=== PATIENT | male | born 1935 | race Caucasian/White ===

== ENCOUNTER 2017-07-07 14:20 | Inpatient (IN) | payer MEDICARE ==
[~2017-07-07] VITALS: Ht 180.3 cm; Wt 111.9 kg
[2017-07-07 12:00] VITALS: O2SAT 95
[2017-07-07 14:26] VITALS: BP 140/71; PULSE 105; RESP 20; TEMP 98.5; O2SAT 88
[2017-07-07] MEDS ORDERED: LANTUS2P (14:45)
[2017-07-07] MEDS ORDERED: LOVA10TA PO (14:45)
[2017-07-07] MEDS ORDERED: LANTINJ SQ (14:45)
[2017-07-07] MEDS ORDERED: LISI2.5T3 PO (14:45)
[2017-07-07] MEDS ORDERED: FURO1TAB62 PO (14:45)
[2017-07-07] MEDS ORDERED: SODIUM CHLOR 0.9% 1000 ML INJ 1,000 ML IV ONE (14:45)
[2017-07-07] MEDS ORDERED: SODIUM CHLORIDE 0.9% FLUSH 10 ML FLUSH IVF PRN (14:45)
[2017-07-07] MEDS ORDERED: SPIRCAP INH (14:45)
[2017-07-07] MEDS ORDERED: METF1000 PO (14:45)
--- NOTE | 2017-07-07 15:02 | PD ---
HPI . He fell and couldn't get up Chief Complaint: Diabetic Time Seen by Provider: 14:42 Travel History International Travel<30 days: No Contact w/Intl Traveler<30days: No Traveled to known affect area: No History of Present Illness HPI Patient presents to us via [facility] after falling. He states that he fell out of his bed last night about 3 AM. He states that his orders are very tight and that he was unable to get up. He states he was on his hands and knees for quite some time trying to get into the bed. He suffered some friction lobato to the knees as result of this. He then sat on his buttocks in the corner until help came 12 hours later. His only complaint to me was mild bilateral knee discomfort from friction lobato. EMS reported a fingerstick blood sugar in the 300+ range. They treated him in route with IV fluids. His fingerstick blood sugar on arrival here was around 290. The patient has no other physical complaints. PFSH Past Medical History High Cholesterol: Yes COPD: Yes Diabetes: Yes Patient Takes Glucophage: Yes Diminished Hearing: No Hypertension: Yes Tetanus Vaccination: Unknown Past Surgical History Surgical History: No Previous Surgery Social History Alcohol Use: No Tobacco Use: Yes (1 PPW) Substance Use: No Allergies-Medications (Allergen,Severity, Reaction): Coded Allergies: No Known Allergies (Unverified , 07/07/17) Reported Meds & Prescriptions Reported Meds & Active Scripts Active Reported Lantus Solostar Pen Inj (Insulin Glargine) 300 Unit/3 Ml Pen 40 Units SQ BID Lantus Inj (Insulin Glargine) 100 Unit/Ml Inj Spiriva Handihaler (Tiotropium Inh) 18 Mcg Cap 18 Mcg INH DAILY 1 capsule = 18 mcg Lovastatin 10 Mg Tab Unknown Dose PO DAILY Metformin (Metformin HCl) 1,000 Mg Tab 1,000 Mg PO BIDPC Lasix (Furosemide) 20 Mg Tab Unknown Dose PO DAILY Lisinopril 2.5 Mg Tab Unknown Dose PO DAILY Review of Systems Except as stated in HPI: all other systems reviewed are Neg Physical Exam Narrative GENERAL: Awake and alert and in no acute distress. SKIN: warm/dry. Good color and turgor. Superficial friction lobato on both knees. HEAD: Normocephalic. Atraumatic. EYES: Pupils equal and round. No scleral icterus. No injection or drainage. ENT: No nasal bleeding or discharge. Mucous membranes dry. Ketones. NECK: Trachea midline. Full range of motion without pain.. CARDIOVASCULAR: Regular rate and rhythm. Heart sounds normal. RESPIRATORY: No accessory muscle use. Clear to auscultation. Breath sounds equal bilaterally. GASTROINTESTINAL: Abdomen soft. Nontender. Bowel sounds present. Nondistended. MUSCULOSKELETAL: No obvious deformities. NEUROLOGICAL: Awake and alert. No obvious cranial nerve deficits. Motor grossly within normal limits. Normal speech. PSYCHIATRIC: Appropriate mood and affect; insight and judgment normal. Data Data Last Documented VS Vital Signs Date Time Temp Pulse Resp B/P (MAP) Pulse Ox O2 Delivery O2 Flow Rate FiO2 07/07/17 15:32 18 94 Nasal Cannula 2.00 07/07/17 15:28 93 07/07/17 14:26 98.5 Orders Orders Basic Metabolic Panel (Bmp) (07/07/17 14:42) Ckmb (Isoenzyme) Profile (07/07/17 14:42) Complete Blood Count With Diff (07/07/17 14:42) Magnesium (Mg) (07/07/17 14:42) Troponin I (07/07/17 14:42) Ecg Monitoring (07/07/17 14:42) Iv Access Insert/Monitor (07/07/17 14:42) Oximetry (07/07/17 14:42) Sodium Chloride 0.9% Flush (Ns Flush) (07/07/17 14:45) Sodium Chlor 0.9% 1000 Ml Inj (Ns 1000 M (07/07/17 14:45) Lisinopril (Prinivil) (07/07/17 15:15) Metformin (Glucophage) (07/07/17 15:15) CKMB (07/07/17 14:50) CKMB% (07/07/17 14:50) Labs Laboratory Tests Test 07/07/17 14:50 White Blood Count 19.6 TH/MM3 Red Blood Count 3.95 MIL/MM3 Hemoglobin 12.9 GM/DL Hematocrit 38.7 % Mean Corpuscular Volume 98.0 FL Mean Corpuscular Hemoglobin 32.6 PG Mean Corpuscular Hemoglobin Concent 33.2 % Red Cell Distribution Width 12.3 % Platelet Count 221 TH/MM3 Mean Platelet Volume 9.3 FL Neutrophils (%) (Auto) 88.7 % Lymphocytes (%) (Auto) 3.7 % Monocytes (%) (Auto) 7.5 % Eosinophils (%) (Auto) 0.0 % Basophils (%) (Auto) 0.1 % Neutrophils # (Auto) 17.4 TH/MM3 Lymphocytes # (Auto) 0.7 TH/MM3 Monocytes # (Auto) 1.5 TH/MM3 Eosinophils # (Auto) 0.0 TH/MM3 Basophils # (Auto) 0.0 TH/MM3 CBC Comment DIFF FINAL Differential Comment Blood Urea Nitrogen 22 MG/DL Creatinine 1.60 MG/DL Random Glucose 299 MG/DL Calcium Level 8.6 MG/DL Magnesium Level 1.5 MG/DL Sodium Level 139 MEQ/L Potassium Level 4.0 MEQ/L Chloride Level 105 MEQ/L Carbon Dioxide Level 21.9 MEQ/L Anion Gap 12 MEQ/L Estimat Glomerular Filtration Rate 42 ML/MIN Total Creatine Kinase 673 U/L Creatine Kinase MB 17.5 NG/ML Creatine Kinase MB % 2.6 % Troponin I 0.04 NG/ML MDM Medical Decision Making Medical Screen Exam Complete: Yes Emergency Medical Condition: Yes Differential Diagnosis Differential diagnosis of weakness includes but is not limited to infection, CVA , electrolyte disturbance, renal failure, hypoglycemia, UTI, ACS, acute blood loss Narrative Course This patient presents for evaluation after falling and being unable to get up. They are basically to concerns regarding this patient. #1 would be to rule out rhabdomyolysis. 2nd would be to evaluate his hyperglycemia. The hyperglycemia is pretty mild. He will be given a second liter of fluid here and then his sugar will be rechecked. I do not anticipate having to treat the sugar with insulin. I will order his routine meds. CBC & BMP Diagram 07/07/17 14:50 Calcium Level 8.6, Magnesium Level 1.5 CK 673 Trop 0.04 The patient will be ambulated to make sure that he is steady on his feet. Diagnosis Primary Impression: Rhabdomyolysis Qualified Codes: M62.82 - Rhabdomyolysis Patient Instructions: General Instructions, Rhabdomyolysis (DC) Additional Instructions: Drink lots of fluids for the next 24 hours. Disposition: 01 DISCHARGE HOME Condition: Stable Megan Verma MD Jul 07, 2017 15:02
[2017-07-07] MEDS ORDERED: LISINOPRIL 5 MG TAB PO ONE (15:15)
[2017-07-07] MEDS ORDERED: metFORMIN HCL 500 MG TAB PO ONE (15:15)
[2017-07-07 15:17] LABS: AUTOMATED NEUTROPHIL # 17.4 TH/MM3 (1.8-7.7); BASOPHIL % 0.1 % (0.0-2.0); HEMATOCRIT 38.7 % (39.0-51.0); HEMOGLOBIN 12.9 GM/DL (13.0-17.0); LYMPH % 3.7 % (9.0-44.0); LYMPHOCYTE # 0.7 TH/MM3 (1.0-4.8); MEAN CORPUSCULAR HEMOGLOBIN 32.6 PG (27.0-34.0); MEAN CORPUSCULAR HGB CONC 33.2 % (32.0-36.0); MEAN PLATELET VOLUME 9.3 FL (7.0-11.0); MONO % 7.5 % (0.0-8.0); MONOCYTE # 1.5 TH/MM3 (0-0.9); NEUT % 88.7 % (16.0-70.0); PLATELET COUNT 221 TH/MM3 (150-450); RED BLOOD COUNT 3.95 MIL/MM3 (4.50-5.90); RED CELL DISTRIBUTION WIDTH 12.3 % (11.6-17.2); WHITE BLOOD COUNT 19.6 TH/MM3 (4.0-11.0)
[2017-07-07 15:28] VITALS: BP 123/63; PULSE 93; RESP 16; O2SAT 94
[2017-07-07 15:32] VITALS: RESP 18; O2SAT 94
[2017-07-07 15:32] LABS: CALCIUM 8.6 MG/DL (8.5-10.1)
[2017-07-07 15:33] LABS: BICARBONATE 21.9 MEQ/L (21.0-32.0); MAGNESIUM 1.5 MG/DL (1.5-2.5)
[2017-07-07 15:36] LABS: CREATININE 1.6 MG/DL (0.60-1.30)
[2017-07-07 15:41] LABS: TROPONIN I 0.04 NG/ML (0.02-0.05)
--- NOTE | 2017-07-07 16:47 | PD ---
Data Data Last Documented VS Vital Signs Date Time Temp Pulse Resp B/P (MAP) Pulse Ox O2 Delivery O2 Flow Rate FiO2 07/07/17 15:32 18 94 Nasal Cannula 2.00 07/07/17 15:28 93 07/07/17 14:26 98.5 Orders Orders Basic Metabolic Panel (Bmp) (07/07/17 14:42) Ckmb (Isoenzyme) Profile (07/07/17 14:42) Complete Blood Count With Diff (07/07/17 14:42) Magnesium (Mg) (07/07/17 14:42) Troponin I (07/07/17 14:42) Ecg Monitoring (07/07/17 14:42) Iv Access Insert/Monitor (07/07/17 14:42) Oximetry (07/07/17 14:42) Sodium Chloride 0.9% Flush (Ns Flush) (07/07/17 14:45) Sodium Chlor 0.9% 1000 Ml Inj (Ns 1000 M (07/07/17 14:45) Lisinopril (Prinivil) (07/07/17 15:15) Metformin (Glucophage) (07/07/17 15:15) CKMB (07/07/17 14:50) CKMB% (07/07/17 14:50) Electrocardiogram (07/07/17 ) Chest, Single Ap (07/07/17 ) Labs Laboratory Tests Test 07/07/17 14:50 White Blood Count 19.6 TH/MM3 Red Blood Count 3.95 MIL/MM3 Hemoglobin 12.9 GM/DL Hematocrit 38.7 % Mean Corpuscular Volume 98.0 FL Mean Corpuscular Hemoglobin 32.6 PG Mean Corpuscular Hemoglobin Concent 33.2 % Red Cell Distribution Width 12.3 % Platelet Count 221 TH/MM3 Mean Platelet Volume 9.3 FL Neutrophils (%) (Auto) 88.7 % Lymphocytes (%) (Auto) 3.7 % Monocytes (%) (Auto) 7.5 % Eosinophils (%) (Auto) 0.0 % Basophils (%) (Auto) 0.1 % Neutrophils # (Auto) 17.4 TH/MM3 Lymphocytes # (Auto) 0.7 TH/MM3 Monocytes # (Auto) 1.5 TH/MM3 Eosinophils # (Auto) 0.0 TH/MM3 Basophils # (Auto) 0.0 TH/MM3 CBC Comment DIFF FINAL Differential Comment Blood Urea Nitrogen 22 MG/DL Creatinine 1.60 MG/DL Random Glucose 299 MG/DL Calcium Level 8.6 MG/DL Magnesium Level 1.5 MG/DL Sodium Level 139 MEQ/L Potassium Level 4.0 MEQ/L Chloride Level 105 MEQ/L Carbon Dioxide Level 21.9 MEQ/L Anion Gap 12 MEQ/L Estimat Glomerular Filtration Rate 42 ML/MIN Total Creatine Kinase 673 U/L Creatine Kinase MB 17.5 NG/ML Creatine Kinase MB % 2.6 % Troponin I 0.04 NG/ML [facility] Supervised Visit with TRENA: No Narrative Course The patient was initially evaluated and treated by the previous provider and discharged by the previous provider, however prior to being discharged, the patient's daughter became upset that the patient was alone and she does not believe that he can care for himself, and would like him admitted for physical rehabilitation. See the previous provider's note for further information. Briefly this is an 82-year-old male with history of COPD, diabetes, lives alone , rolled out of bed at around 3:00 AM, found by his daughter sitting on the floor this afternoon. The patient sustained abrasions to his bilateral anterior knees. He denies head injury. He denies pain anywhere except for slight pain in his bilateral anterior knees. Daughter states that he has progressively become more and more weak over the last couple of months and she does not believe that he can care for himself. His O2 saturation is 89% on room air, 94% on 2 L nasal cannula. He denies cough or upper respiratory symptoms and states that he has a history of COPD and is not on home O2. Labs were remarkable for slight renal insufficiency with a creatinine of 1.6 with a CK in the 600s and a troponin of 0.04. He also has a slight leukocytosis of 19, 000 with 84% neutrophils. He has not had any fever. This leukocytosis is nonspecific and could be secondary to stress demargination. EMS reported that his blood sugar was elevated. Here it is 299. He was given a total of 2 L of normal saline IV, one by EMS and one by the previous provider. I will obtain a chest x-ray and EKG and admit the patient for further treatment and evaluation. EKG: Sinus, rate 93, normal axis, normal intervals, no acute ischemic abnormality. Case discussed with hospitalist Dr. Smith who will admit the patient to his service. Diagnosis Primary Impression: Rhabdomyolysis Qualified Codes: M62.82 - Rhabdomyolysis Additional Impressions: Hyperglycemia Fall Qualified Codes: W19.XXXA - Unspecified fall, initial encounter Self-care deficit in patient living alone Abrasions of multiple sites Hypoxia Leukocytosis Qualified Codes: D72.829 - Elevated white blood cell count, unspecified Renal insufficiency Admitting Information Admitting Physician Requests: Observation Referrals: Primary Care Physician as needed Patient Instructions: General Instructions, Rhabdomyolysis (DC) Departure Forms: Tests/Procedures Additional Instruction: Drink lots of fluids for the next 24 hours. Disposition: 01 DISCHARGE HOME Condition: Stable Tahir Tony MD Jul 07, 2017 16:47
--- NOTE | 2017-07-07 17:54 | RADRPT ---
EXAM DATE/TIME: 07/07/2017 16:53 [facility] COMPARISON: No previous studies available for comparison. INDICATIONS : Shortness of breath. MEDICAL HISTORY : Hypercholesterolemia. Hypertension Chronic obstructive pulmonary disease. Diabetes SURGICAL HISTORY : ORIF right clavicle ENCOUNTER: Initial ACUITY: 1 day PAIN SCORE: 0/10 LOCATION: Bilateral chest FINDINGS: Mild interstitial prominence. Linear parenchymal opacities in the lower lobes bilaterally. Cardiomedi astinal contours are within normal limits. Right clavicle hardware fixation. Osseous structures are g rossly intact. CONCLUSION: 1. Mild interstitial prominence of unknown chronicity. 2. Linear bibasilar parenchymal opacities, likely atelectasis/scarring. Eyal Gutierrez MD on July 07, 2017 at 17:51 Board Certified Radiologist. This report was verified electronically.
[2017-07-07 18:17] VITALS: BP 112/65; PULSE 89; RESP 16; O2SAT 95
--- NOTE | 2017-07-07 18:51 | HHI.HP ---
[facility] No Primary Care Physician Admission Diagnosis rhabdomyolysis, hyperglycemia, fall, Diagnoses: Chief Complaint: Fall Travel History International Travel<30 Days: No Contact w/Intl Traveler <30 Da: No Traveled to Known Affected Are: No History of Present Illness 82-year-old white male being admitted for rhabdomyolysis. Patient was in his usual state of health until last night he rolled out of bed and fell on the floor. He states that he had laid on the floor for quite some time and says he was unable to move. Eventually he did have assistance from family members. Patient states he was able to stand later in the day but needed assistance in doing so. Denies having shortness of breath or chest pain or loss of consciousness or striking his head. He says he lives by himself in a little camper. Patient feels that he is weak and his daughter told emergency room doctor that it would be unsafe for him to go home alone. Patient is seeking rehabilitation assistance for strengthening and endurance. Given bolus in ed. Hyperglycemic as well suggestive uncontrolled DM Review of Systems Except as stated in HPI: all other systems reviewed are Neg Past Family Social History Past Medical History COPD HTN HYL Allergies: Coded Allergies: No Known Allergies (Unverified , 07/07/17) Family History htn Social History smoking Physical Exam Vital Signs Vital Signs Date Time Temp Pulse Resp B/P (MAP) Pulse Ox O2 Delivery O2 Flow Rate FiO2 07/07/17 18:17 89 16 112/65 (81) 95 Nasal Cannula 2.00 07/07/17 15:32 18 94 Nasal Cannula 2.00 07/07/17 15:28 93 16 123/63 (83) 94 Nasal Cannula 2.00 07/07/17 14:39 16 92 Nasal Cannula 2.00 07/07/17 14:26 98.5 105 20 140/71 (94) 88 Physical Exam VS: afebrile GENERAL: Elderly white male, well-nourished for his age, in no acute distress SKIN: left skin abrasion golf ball size EYES: Pupils equal and round. No scleral icterus. No injection or drainage. ENT: NC/AT CARDIOVASCULAR: Regular rate and rhythm. no murmurs RESPIRATORY: No accessory muscle use. Clear to auscultation. Breath sounds equal bilaterally. GASTROINTESTINAL: Abdomen soft, non-tender, nondistended. Extremities: No clubbing, cyanosis, or edema. No obvious deformities. MUSCULOSKELETAL: 3/5 strength in left lower extremity; mild bruising noted in lower legs; adequate muscle bulk and tone for age and habitus NEUROLOGICAL: Awake and alert. No obvious cranial nerve deficits. No facial droop nor slurred speech noted. PSYCHIATRIC: Appropriate mood and affect; insight and judgment normal. Laboratory Laboratory Tests Test 07/07/17 14:50 White Blood Count 19.6 Red Blood Count 3.95 Hemoglobin 12.9 Hematocrit 38.7 Mean Corpuscular Volume 98.0 Mean Corpuscular Hemoglobin 32.6 Mean Corpuscular Hemoglobin Concent 33.2 Red Cell Distribution Width 12.3 Platelet Count 221 Mean Platelet Volume 9.3 Neutrophils (%) (Auto) 88.7 Lymphocytes (%) (Auto) 3.7 Monocytes (%) (Auto) 7.5 Eosinophils (%) (Auto) 0.0 Basophils (%) (Auto) 0.1 Neutrophils # (Auto) 17.4 Lymphocytes # (Auto) 0.7 Monocytes # (Auto) 1.5 Eosinophils # (Auto) 0.0 Basophils # (Auto) 0.0 CBC Comment DIFF FINAL Differential Comment Blood Urea Nitrogen 22 Creatinine 1.60 Random Glucose 299 Calcium Level 8.6 Magnesium Level 1.5 Sodium Level 139 Potassium Level 4.0 Chloride Level 105 Carbon Dioxide Level 21.9 Anion Gap 12 Estimat Glomerular Filtration Rate 42 Total Creatine Kinase 673 Creatine Kinase MB 17.5 Creatine Kinase MB % 2.6 Troponin I 0.04 Result Diagram: 07/07/17 1450 07/07/17 1450 Imaging Last Impressions Chest X-Ray 07/07/17 0000 Signed Impressions: Service Date/Time: Friday, July 07, 2017 16:53 - CONCLUSION: 1. Mild interstitial prominence of unknown chronicity. 2. Linear bibasilar parenchymal opacities, likely atelectasis/scarring. MD Tiana Monte VTE Risk Assessment Tiana VTE Risk Assessment: Mod/High Risk (score >= 2) Caprini Risk Assessment Model Point Value = 1 Point Value = 2 Point Value = 3 Point Value = 5 Age 41-60 Minor surgery BMI > 25 kg/m2 Swollen legs Varicose veins or History of unexplained or recurrent spontaneous Oral contraceptives or hormone replacement Sepsis (< 1 month) Serious lung disease, including pneumonia (< 1 month) Abnormal pulmonary function Acute myocardial infarction Congestive heart failure (< 1 month) History of inflammatory bowel disease Medical patient at bed rest Age 61-74 Arthroscopic surgery Major open surgery (> 45 min) Laparoscopic surgery (> 45 min) Malignancy Confined to bed (> 72 hours) Immobilizing plaster cast Central venous access Age >= 75 History of VTE Family history of VTE Factor V Leiden Prothrombin [id number] Lupus anticoagulant Anticardiolipin antibodies Elevated serum homocysteine Heparin-induced thrombocytopenia Other congenital or acquired thrombophilia Stroke (< 1 month) Elective arthroplasty Hip, pelvis, or leg fracture Acute spinal cord injury (< 1 month) Prophylaxis Regimen Total Risk Factor Score Risk Level Prophylaxis Regimen 0-1 Low Early ambulation 2 Moderate Order ONE of the following: *Sequential Compression Device (SCD) *Heparin 5000 units SQ BID 3-4 Higher Order ONE of the following medications: *Heparin 5000 units SQ TID *Enoxaparin/Lovenox 40 mg SQ daily (WT < 150 kg, CrCl > 30 mL/min) *Enoxaparin/Lovenox 30 mg SQ daily (WT < 150 kg, CrCl > 10-29 mL/min) *Enoxaparin/Lovenox 30 mg SQ BID (WT < 150 kg, CrCl > 30 mL/min) AND/OR *Sequential Compression Device (SCD) 5 or more Highest Order ONE of the following medications: *Heparin 5000 units SQ TID (Preferred with Epidurals) *Enoxaparin/Lovenox 40 mg SQ daily (WT < 150 kg, CrCl > 30 mL/min) *Enoxaparin/Lovenox 30 mg SQ daily (WT < 150 kg, CrCl > 10-29 mL/min) *Enoxaparin/Lovenox 30 mg SQ BID (WT < 150 kg, CrCl > 30 mL/min) AND *Sequential Compression Device (SCD) Assessment and Plan Assessment and Plan 82-year-old white male being admitted for rhabdomyolysis. Patient's minimal hypoxia noted on room air at 88% was most likely due to recumbent positioning. Mild Rhabdomyolysis - Likely secondary to fall and prolonged immobilization - IV fluids - Trend CK - hold home lovastatin Acute kidney injury - Likely secondary to mild rhabdomyolysis - IV fluids as above - hold home lasix Left lower leg weakness - Appears to be muscular in origin secondary to injury - Treat as above rhabdomyolysis, PT/OT. leukocytosis - likely stress/injury induced - trend; no signs of clinical infection at this time Skin abrasion - chlorhexidine and neosporin application and protective dressing DM - MDSS HTN/HYL - continue home meds except for lovastatin. COPD - continue home ipratropium fall precautions. heparin Bobby Smith MD Jul 07, 2017 18:51
[2017-07-07] MEDS ORDERED: CHLORHEXIDINE GLUCONATE 2 % 1 PACK (2 CLOTHS) TOPICAL ONE (19:00)
[2017-07-07] MEDS ORDERED: DEXTROSE 50% IN WATER 50 ML VIAL(D50) IV PUSH PRN (19:00)
[2017-07-07] MEDS ORDERED: GLUCAGON 1 MG/ML VIAL OTHER PRN (19:00)
[2017-07-07] MEDS: HEPARIN SODIUM - SQ 10,000 UNITS/ML VIAL SQ SCH (20:16)
[2017-07-07] MEDS: SODIUM CHLOR 0.9% 1000 ML INJ 1,000 ML IV SCH (20:35)
[2017-07-07] MEDS: INSULIN NovoLIN REGULAR SUPPLEMENTAL SCALE SQ SCH (21:00)
[2017-07-07 21:30] VITALS: BP 119/75; PULSE 88; RESP 18; TEMP 96.1; O2SAT 94
[2017-07-07] MEDS: NEOMYCIN/POLYMYXIN/BACITRACIN OINT 15 GM TUBE TOPICAL SCH (22:20)
[2017-07-08] VITALS: BP 107/79; PULSE 84; RESP 18; TEMP 96.3; O2SAT 93
[2017-07-08] MEDS: HEPARIN SODIUM - SQ 10,000 UNITS/ML VIAL SQ SCH ×4 (06:00→22:04)
[2017-07-08 08:00] VITALS: BP 138/74; PULSE 90; RESP 18; TEMP 97.4; O2SAT 94
[2017-07-08 08:07] LABS: AUTOMATED NEUTROPHIL # 9.1 TH/MM3 (1.8-7.7); BASOPHIL % 0.2 % (0.0-2.0); EOSINOPHIL # 0.1 TH/MM3 (0-0.4); EOSINOPHIL % 0.5 % (0.0-4.0); HEMATOCRIT 35.5 % (39.0-51.0); HEMOGLOBIN 12.2 GM/DL (13.0-17.0); LYMPHOCYTE # 1.4 TH/MM3 (1.0-4.8); MEAN CELL VOLUME 97.3 FL (80.0-100.0); MEAN CORPUSCULAR HEMOGLOBIN 33.4 PG (27.0-34.0); MEAN CORPUSCULAR HGB CONC 34.3 % (32.0-36.0); MEAN PLATELET VOLUME 8.5 FL (7.0-11.0); MONO % 9.4 % (0.0-8.0); MONOCYTE # 1.1 TH/MM3 (0-0.9); NEUT % 77.9 % (16.0-70.0); PLATELET COUNT 210 TH/MM3 (150-450); RED BLOOD COUNT 3.65 MIL/MM3 (4.50-5.90); RED CELL DISTRIBUTION WIDTH 12.7 % (11.6-17.2); WHITE BLOOD COUNT 11.8 TH/MM3 (4.0-11.0)
[2017-07-08 08:15] LABS: CALCIUM 8.3 MG/DL (8.5-10.1)
[2017-07-08 08:34] LABS: BICARBONATE 27.4 MEQ/L (21.0-32.0); CREATININE 1.2 MG/DL (0.60-1.30)
[2017-07-08] MEDS: SODIUM CHLOR 0.9% 1000 ML INJ 1,000 ML IV SCH ×2 (08:51→18:16)
[2017-07-08] MEDS: NEOMYCIN/POLYMYXIN/BACITRACIN OINT 15 GM TUBE TOPICAL SCH (09:51)
[2017-07-08] MEDS: INSULIN NovoLIN REGULAR SUPPLEMENTAL SCALE SQ SCH ×4 (09:51→22:04)
[2017-07-08] MEDS: TIOTROPIUM BROMIDE 18 MCG INH INH SCH (09:51)
[2017-07-08 12:00] VITALS: BP 126/81; PULSE 80; RESP 18; TEMP 97; O2SAT 95
--- NOTE | 2017-07-08 15:28 | EKG ---
Date Performed: 07/07/2017 Time Performed: 16:47:43 PTAGE: 82 years EKG: Sinus rhythm NORMAL ECG NO PREVIOUS TRACING DOCTOR: Dinesh Cleary Interpretating Date/Time 07/08/2017 15:27:13
[2017-07-08 16:00] VITALS: BP 125/77; PULSE 80; RESP 18; TEMP 97; O2SAT 96
--- NOTE | 2017-07-08 16:31 | HHI.PR ---
Subjective Remarks Patient seen today in follow-up for weakness status post fall and for acute rhabdomyolysis. Doing better. Plan discussed with physical therapy as well as family Objective Vitals Vital Signs Date Time Temp Pulse Resp B/P (MAP) Pulse Ox O2 Delivery O2 Flow Rate FiO2 07/08/17 12:00 97.0 80 18 126/81 (96) 95 07/08/17 08:00 97.4 90 18 138/74 (95) 94 07/08/17 00:00 96.3 84 18 107/79 (88) 93 07/07/17 21:30 96.1 88 18 119/75 (90) 94 07/07/17 20:10 07/07/17 18:17 89 16 112/65 (81) 95 Nasal Cannula 2.00 I/O 07/07/17 07/07/17 07/07/17 07/08/17 07/08/17 07/08/17 07:00 15:00 23:00 07:00 15:00 23:00 Intake Total 1000 ml 240 ml Output Total 125 ml 300 ml Balance 875 ml 240 ml -300 ml Intake Oral 240 ml IV Total 1000 ml Output Urine Total 125 ml 300 ml Stool Total 0 ml # Voids 1 Result Diagram: 07/08/17 0750 07/08/17 0750 Imaging Last Impressions Chest X-Ray 07/07/17 0000 Signed Impressions: Service Date/Time: Friday, July 07, 2017 16:53 - CONCLUSION: 1. Mild interstitial prominence of unknown chronicity. 2. Linear bibasilar parenchymal opacities, likely atelectasis/scarring. Eyal Gutierrez MD Objective Remarks Bilateral knee abrasions, right knee with bulla formation GENERAL: This is a well-nourished, well-developed patient, in no apparent distress. CARDIOVASCULAR: Regular rate and rhythm without murmurs, gallops, or rubs. RESPIRATORY: Clear to auscultation. Breath sounds equal bilaterally. No wheezes , rales, or rhonchi. GASTROINTESTINAL: Abdomen soft, non-tender, nondistended. Normal active bowel sounds MUSCULOSKELETAL: Extremities without clubbing, cyanosis, or edema. NEURO: Alert & Oriented x4 to person, place, time, situation. Moves all ext x4 but weakly A/P Problem List: (1) Diabetes mellitus type 2 in obese ICD Code: E11.69 - Type 2 diabetes mellitus with other specified complication; E66.9 - Obesity, unspecified Plan: Continue sliding scale insulin for now, diabetic diet and follow Currently controlled off of home medications (2) Abrasions of multiple sites ICD Code: T07.XXXA - Unspecified multiple injuries, initial encounter Status: Acute Plan: Continue wound care (3) Rhabdomyolysis ICD Code: M62.82 - Rhabdomyolysis Status: Acute Plan: Likely secondary to fall CPK has gone up to 2899. Continue IV hydration follow trend (4) Leukocytosis ICD Code: D72.829 - Elevated white blood cell count, unspecified Status: Acute Plan: etiology unclear likely volume contracted will follow no evidence of infection Discharge Planning May need custodial versus inpatient rehabilitation OT and PT evaluation appreciated Problem Qualifiers (1) Rhabdomyolysis: Qualified Codes: M62.82 - Rhabdomyolysis (2) Leukocytosis: Qualified Codes: D72.829 - Elevated white blood cell count, unspecified Sherine Prince MD Jul 08, 2017 16:31
[2017-07-08 20:00] VITALS: BP 111/71; PULSE 79; RESP 24; TEMP 97.2; O2SAT 92
[2017-07-08 20:18] LABS: BILIRUBIN, URINE NEGATIVE (NEG); BLOOD, URINE TRACE (NEG); GLUCOSE,URINE 100 mg/dL (NEG); KETONE, URINE NEG (NEG); NITRITE,URINE NEG (NEG); PH, URINE 5.5 (5.0-8.5); URINE COLOR YELLOW (YELLW/STRAW); URINE LEUKOCYTE ESTERASE NEGATIVE (NEG)
[2017-07-08 20:20] LABS: MUCUS URINE FEW /lpf (OCC); SQUAMOUS EPITHELIAL CELL URINE 0-5 /hpf (0-5); URIC ACID CRYSTALS, URINE OCC /hpf
[2017-07-08 20:21] LABS: RBC, URINE 0-3 /hpf (0-3)
[2017-07-09] VITALS: BP 155/95; PULSE 83; RESP 20; TEMP 97.3; O2SAT 94
[2017-07-09] MEDS: HEPARIN SODIUM - SQ 10,000 UNITS/ML VIAL SQ SCH ×3 (05:28→21:22)
[2017-07-09 08:00] VITALS: BP 128/67; PULSE 97; RESP 16; TEMP 98.6; O2SAT 92
[2017-07-09] MEDS: TIOTROPIUM BROMIDE 18 MCG INH INH SCH (08:04)
[2017-07-09] MEDS: SODIUM CHLOR 0.9% 1000 ML INJ 1,000 ML IV SCH ×2 (08:06→21:22)
[2017-07-09] MEDS: INSULIN NovoLIN REGULAR SUPPLEMENTAL SCALE SQ SCH ×4 (08:09→21:23)
[2017-07-09 08:28] LABS: AUTOMATED NEUTROPHIL # 6.4 TH/MM3 (1.8-7.7); BASOPHIL % 0.3 % (0.0-2.0); EOSINOPHIL # 0.2 TH/MM3 (0-0.4); EOSINOPHIL % 2.2 % (0.0-4.0); HEMATOCRIT 38.8 % (39.0-51.0); HEMOGLOBIN 12.6 GM/DL (13.0-17.0); LYMPH % 14.9 % (9.0-44.0); LYMPHOCYTE # 1.3 TH/MM3 (1.0-4.8); MEAN CELL VOLUME 97.4 FL (80.0-100.0); MEAN CORPUSCULAR HEMOGLOBIN 31.5 PG (27.0-34.0); MEAN CORPUSCULAR HGB CONC 32.4 % (32.0-36.0); MEAN PLATELET VOLUME 8.3 FL (7.0-11.0); MONO % 9.7 % (0.0-8.0); MONOCYTE # 0.8 TH/MM3 (0-0.9); NEUT % 72.9 % (16.0-70.0); PLATELET COUNT 226 TH/MM3 (150-450); RED BLOOD COUNT 3.98 MIL/MM3 (4.50-5.90); RED CELL DISTRIBUTION WIDTH 12.7 % (11.6-17.2); WHITE BLOOD COUNT 8.8 TH/MM3 (4.0-11.0)
[2017-07-09] MEDS: NEOMYCIN/POLYMYXIN/BACITRACIN OINT 15 GM TUBE TOPICAL SCH (09:00)
[2017-07-09 09:01] LABS: BICARBONATE 28.9 MEQ/L (21.0-32.0); CALCIUM 8.8 MG/DL (8.5-10.1)
[2017-07-09 09:05] LABS: CREATININE 0.89 MG/DL (0.60-1.30)
--- NOTE | 2017-07-09 09:42 | HHI.PR ---
Subjective Remarks patient seen and evaluated today in follow-up for rhabdomyolysis and weakness. Doing better. CPK improved. No new events overnight Objective Vitals Vital Signs Date Time Temp Pulse Resp B/P (MAP) Pulse Ox O2 Delivery O2 Flow Rate FiO2 07/09/17 00:00 97.3 83 20 155/95 (115) 94 07/08/17 20:00 97.2 79 24 111/71 (84) 92 07/08/17 16:00 97.0 80 18 125/77 (93) 96 07/08/17 12:00 97.0 80 18 126/81 (96) 95 I/O 07/08/17 07/08/17 07/08/17 07/09/17 07/09/17 07/09/17 07:00 15:00 23:00 07:00 15:00 23:00 Intake Total 240 ml 1600 ml 960 ml Output Total 300 ml 2050 ml Balance 240 ml -300 ml 1600 ml -1090 ml Intake Oral 240 ml 600 ml 960 ml IV Total 1000 ml Output Urine Total 300 ml 2050 ml Stool Total 0 ml # Voids 1 # Bowel Movements 0 Result Diagram: 07/09/17 0745 07/09/17 0745 Objective Remarks Bilateral knee abrasions, right knee with bulla formation GENERAL: This is a well-nourished, well-developed patient, in no apparent distress. CARDIOVASCULAR: Regular rate and rhythm without murmurs, gallops, or rubs. RESPIRATORY: Clear to auscultation. Breath sounds equal bilaterally. No wheezes , rales, or rhonchi. GASTROINTESTINAL: Abdomen soft, non-tender, nondistended. Normal active bowel sounds MUSCULOSKELETAL: Extremities without clubbing, cyanosis, or edema. NEURO: Alert & Oriented x4 to person, place, time, situation. Moves all ext x4 but weakly A/P Problem List: (1) Diabetes mellitus type 2 in obese ICD Code: E11.69 - Type 2 diabetes mellitus with other specified complication; E66.9 - Obesity, unspecified Plan: Continue sliding scale insulin for now, diabetic diet and follow Currently controlled off of home medications (2) Abrasions of multiple sites ICD Code: T07.XXXA - Unspecified multiple injuries, initial encounter Status: Acute Plan: Continue wound care (3) Rhabdomyolysis ICD Code: M62.82 - Rhabdomyolysis Status: Acute Plan: Likely secondary to fall CPK has gone down to 1905. Continue IV hydration follow trend (4) Leukocytosis ICD Code: D72.829 - Elevated white blood cell count, unspecified Status: Acute Plan: Improved Discharge Planning Likely [facility] to [facility] in a.m. pending CPK Problem Qualifiers (1) Rhabdomyolysis: Qualified Codes: M62.82 - Rhabdomyolysis (2) Leukocytosis: Qualified Codes: D72.829 - Elevated white blood cell count, unspecified Sherine Prince MD Jul 09, 2017 09:42
[2017-07-09 12:00] VITALS: BP 138/73; PULSE 83; RESP 14; TEMP 99.1; O2SAT 92
[2017-07-09 16:00] VITALS: BP 157/95; PULSE 81; RESP 14; TEMP 96.7; O2SAT 90
[2017-07-09 20:00] VITALS: BP 138/74; PULSE 83; RESP 16; TEMP 96.3; O2SAT 92
[2017-07-09] MEDS ORDERED: SENNOSIDES 8.6 MG TAB PO PRN (23:00)
[2017-07-09] MEDS ORDERED: BISACODYL 10 MG SUPP RECTAL PRN (23:00)
[2017-07-09] MEDS ORDERED: MAGNESIUM HYDROXIDE SUSP 30 ML CUP PO PRN (23:00)
[2017-07-09] MEDS: DOCUSATE SODIUM 50 MG/SENNA 8.6 MG TAB PO SCH (23:03)
[2017-07-10] VITALS: BP 131/79; PULSE 80; RESP 17; TEMP 97.8; O2SAT 94
[2017-07-10] MEDS: SODIUM CHLOR 0.9% 1000 ML INJ 1,000 ML IV SCH (05:58)
[2017-07-10] MEDS: HEPARIN SODIUM - SQ 10,000 UNITS/ML VIAL SQ SCH ×2 (06:01→15:30)
[2017-07-10 08:00] VITALS: BP 160/99; PULSE 94; RESP 18; TEMP 97.1; O2SAT 92
[2017-07-10] MEDS: INSULIN NovoLIN REGULAR SUPPLEMENTAL SCALE SQ SCH ×3 (08:23→17:07)
[2017-07-10] MEDS: DOCUSATE SODIUM 50 MG/SENNA 8.6 MG TAB PO SCH (08:24)
[2017-07-10] MEDS: TIOTROPIUM BROMIDE 18 MCG INH INH SCH (08:24)
[2017-07-10] MEDS: NEOMYCIN/POLYMYXIN/BACITRACIN OINT 15 GM TUBE TOPICAL SCH (08:24)
[2017-07-10 12:00] VITALS: BP 149/82; PULSE 90; RESP 16; TEMP 97.3; O2SAT 94
--- NOTE | 2017-07-10 12:39 | HHI.PR ---
Subjective Remarks Patient seen and evaluated in follow-up for weakness and rhabdomyolysis Overall improved. Patient seen with OT today and doing better Objective Vitals Vital Signs Date Time Temp Pulse Resp B/P (MAP) Pulse Ox O2 Delivery O2 Flow Rate FiO2 07/10/17 08:00 97.1 94 18 160/99 (119) 92 07/10/17 00:00 97.8 80 17 131/79 (96) 94 07/09/17 20:00 96.3 83 16 138/74 (95) 92 07/09/17 16:00 96.7 81 14 157/95 (115) 90 I/O 07/09/17 07/09/17 07/09/17 07/10/17 07/10/17 07/10/17 07:00 15:00 23:00 07:00 15:00 23:00 Intake Total 960 ml 240 ml 480 ml Output Total 2050 ml 700 ml 300 ml Balance -1090 ml 240 ml 480 ml -700 ml -300 ml Intake Oral 960 ml 240 ml 480 ml Output Urine Total 2050 ml 700 ml 300 ml # Voids 3 2 # Bowel Movements 0 0 Result Diagram: 07/09/17 0745 07/09/17 0745 Objective Remarks Bilateral knee abrasions, right knee with bulla formation GENERAL: This is a well-nourished, well-developed patient, in no apparent distress. CARDIOVASCULAR: Regular rate and rhythm without murmurs, gallops, or rubs. RESPIRATORY: Clear to auscultation. Breath sounds equal bilaterally. No wheezes , rales, or rhonchi. GASTROINTESTINAL: Abdomen soft, non-tender, nondistended. Normal active bowel sounds MUSCULOSKELETAL: Extremities without clubbing, cyanosis, or edema. NEURO: Alert & Oriented x4 to person, place, time, situation. Moves all ext x4 but weakly A/P Problem List: (1) Diabetes mellitus type 2 in obese ICD Code: E11.69 - Type 2 diabetes mellitus with other specified complication; E66.9 - Obesity, unspecified Plan: Continue sliding scale insulin for now, diabetic diet and follow We'll add Levemir to use with NovoLog with meals (2) Abrasions of multiple sites ICD Code: T07.XXXA - Unspecified multiple injuries, initial encounter Status: Acute Plan: Continue wound care (3) Rhabdomyolysis ICD Code: M62.82 - Rhabdomyolysis Status: Acute Plan: Improved (4) Leukocytosis ICD Code: D72.829 - Elevated white blood cell count, unspecified Status: Acute Plan: Improved Discharge Planning improved Problem Qualifiers (1) Rhabdomyolysis: Qualified Codes: M62.82 - Rhabdomyolysis (2) Leukocytosis: Qualified Codes: D72.829 - Elevated white blood cell count, unspecified Sherine Prince MD Jul 10, 2017 12:39
[2017-07-10] MEDS ORDERED: NOVORP2 SQ (12:49)
[2017-07-10] MEDS ORDERED: LEVEMIR SQ (12:49)
[2017-07-10] MEDS ORDERED: TRIPOIN TOPICAL (12:49)
--- NOTE | 2017-07-10 12:53 | HHI.DCPOC ---
Discharge Care Plan Diagnosis: (1) Diabetes mellitus type 2 in obese (2) Self-care deficit in patient living alone (3) Abrasions of multiple sites (4) Rhabdomyolysis Goals to Promote Your Health * To prevent worsening of your condition and complications * To maintain your health at the optimal level Directions to Meet Your Goals Take your medications as prescribed Follow your dietary instruction Follow activity as directed Keep your appointments as scheduled Take your immunizations and boosters as scheduled If your symptoms worsen call your PCP, if no PCP go to Urgent Care Center or Emergency Room Smoking is Dangerous to Your Health. Avoid second hand smoke Call the 24-hour hour crisis hotline for domestic abuse at Sherine Prince MD Jul 10, 2017 12:52
--- NOTE | 2017-07-10 12:56 | HHI.DS ---
Discharge Summary Admission Date Jul 07, 2017 at 19:04 Discharge Date: Jul 10, 2017 Admitting Diagnosis rhabdomyolysis, hyperglycemia, fall, (1) Diabetes mellitus type 2 in obese ICD Code: E11.69 - Type 2 diabetes mellitus with other specified complication; E66.9 - Obesity, unspecified (2) Abrasions of multiple sites ICD Code: T07.XXXA - Unspecified multiple injuries, initial encounter Status: Acute (3) Rhabdomyolysis ICD Code: M62.82 - Rhabdomyolysis Status: Acute (4) Leukocytosis ICD Code: D72.829 - Elevated white blood cell count, unspecified Status: Acute Procedures None Brief History - From Admission 82-year-old white male being admitted for rhabdomyolysis. Patient was in his usual state of health until last night he rolled out of bed and fell on the floor. He states that he had laid on the floor for quite some time and says he was unable to move. Eventually he did have assistance from family members. Patient states he was able to stand later in the day but needed assistance in doing so. Denies having shortness of breath or chest pain or loss of consciousness or striking his head. He says he lives by himself in a little camper. Patient feels that he is weak and his daughter told emergency room doctor that it would be unsafe for him to go home alone. Patient is seeking rehabilitation assistance for strengthening and endurance. Given bolus in ed. Hyperglycemic as well suggestive uncontrolled DM CBC/BMP: 07/09/17 0745 07/09/17 0745 Significant Findings Laboratory Tests Test 07/07/17 14:50 07/08/17 07:50 07/08/17 19:00 07/09/17 07:45 White Blood Count 19.6 TH/MM3 (4.0-11.0) 11.8 TH/MM3 (4.0-11.0) Red Blood Count 3.95 MIL/MM3 (4.50-5.90) 3.65 MIL/MM3 (4.50-5.90) 3.98 MIL/MM3 (4.50-5.90) Hemoglobin 12.9 GM/DL (13.0-17.0) 12.2 GM/DL (13.0-17.0) 12.6 GM/DL (13.0-17.0) Hematocrit 38.7 % (39.0-51.0) 35.5 % (39.0-51.0) 38.8 % (39.0-51.0) Neutrophils (%) (Auto) 88.7 % (16.0-70.0) 77.9 % (16.0-70.0) 72.9 % (16.0-70.0) Lymphocytes (%) (Auto) 3.7 % (9.0-44.0) Neutrophils # (Auto) 17.4 TH/MM3 (1.8-7.7) 9.1 TH/MM3 (1.8-7.7) Lymphocytes # (Auto) 0.7 TH/MM3 (1.0-4.8) Monocytes # (Auto) 1.5 TH/MM3 (0-0.9) 1.1 TH/MM3 (0-0.9) Blood Urea Nitrogen 22 MG/DL (7-18) 27 MG/DL (7-18) 19 MG/DL (7-18) Creatinine 1.60 MG/DL (0.60-1.30) Random Glucose 299 MG/DL (74-106) 167 MG/DL (74-106) 177 MG/DL (74-106) Estimat Glomerular Filtration Rate 42 ML/MIN (>89) 58 ML/MIN (>89) 82 ML/MIN (>89) Total Creatine Kinase 673 U/L (39-308) 2899 U/L (39-308) 1905 U/L (39-308) Creatine Kinase MB 17.5 NG/ML (0.5-3.6) 53.5 NG/ML (0.5-3.6) 24.8 NG/ML (0.5-3.6) Monocytes (%) (Auto) 9.4 % (0.0-8.0) 9.7 % (0.0-8.0) Calcium Level 8.3 MG/DL (8.5-10.1) Urine Glucose (UA) 100 mg/dL (NEG) Urine Occult Blood TRACE (NEG) Urine Uric Acid Crystals OCC /hpf (NONE) Urine Mucus FEW /lpf (OCC) Test 07/10/17 05:10 Total Creatine Kinase 999 U/L (39-308) Creatine Kinase MB 15.2 NG/ML (0.5-3.6) Imaging Last Impressions Chest X-Ray 07/07/17 0000 Signed Impressions: Service Date/Time: Friday, July 07, 2017 16:53 - CONCLUSION: 1. Mild interstitial prominence of unknown chronicity. 2. Linear bibasilar parenchymal opacities, likely atelectasis/scarring. Eyal Gutierrez MD PE at Discharge Bilateral knee abrasions, right knee with bulla formation GENERAL: This is a well-nourished, well-developed patient, in no apparent distress. CARDIOVASCULAR: Regular rate and rhythm without murmurs, gallops, or rubs. RESPIRATORY: Clear to auscultation. Breath sounds equal bilaterally. No wheezes , rales, or rhonchi. GASTROINTESTINAL: Abdomen soft, non-tender, nondistended. Normal active bowel sounds MUSCULOSKELETAL: Extremities without clubbing, cyanosis, or edema. NEURO: Alert & Oriented x4 to person, place, time, situation. Moves all ext x4 but weakly Hospital Course This patient is a 82 year-old gentleman was seen and treated for dehydration with rhabdomyolysis and weakness. Will follow at home and was unable to get himself up. He had some evidence of acute kidney injury and rhabdomyolysis was treated this for the same with IV hydration. His CPK improved. His renal function returned to baseline. Patient did well and was discharged to [facility] facility for further occupational and physical therapy Discharge planning discussed with patient and with daughter Pt Condition on Discharge: Good Discharge Disposition: Discharge to SNF Discharge Time: > 30 minutes Discharge Instructions DIET: Follow Instructions for: As Tolerated, No Restrictions Activities you can perform: Regular-No Restrictions New Medications: Insulin Detemir Inj (Levemir Inj) 1,000 unit/ 10 ML Vial 12 UNITS SQ HS for Blood Sugar Management, #30 INJECTION Do not mix with any other Insulin. Insulin Human Regular Inj (Novolin R Inj) 1,000 Unit/10 Ml Vial 4 UNITS SQ TIDAC for Blood Sugar Management, #90 INJECTION Jdvkvoec-Sqyjyuywpo-Myfwnuipt (Triple Antibiotic 3.5-400-5000) 3.5 Mg-400 Unit-5 ,000 Unit/Gram Oin 1 APPLIC TOPICAL DAILY for skin, #1 TUBE Continued Medications: Furosemide (Lasix) 20 Mg Tab Unknown Dose PO DAILY, #30 TAB 0 Refills Insulin Glargine Inj (Lantus Inj) 100 Unit/Ml Inj Insulin Glargine Inj (Lantus Solostar Pen Inj) 300 Unit/3 Ml Pen 40 UNITS SQ BID for Blood Sugar Management, PEN 0 Refills Lisinopril (Lisinopril) 2.5 Mg Tab Unknown Dose PO DAILY, #30 TAB 0 Refills Lovastatin (Lovastatin) 10 Mg Tab Unknown Dose PO DAILY for Cholesterol Management, #30 TAB 0 Refills Metformin (Metformin) 1,000 Mg Tab 1000 MG PO BIDPC for Blood Sugar Management, #60 TAB 0 Refills Tiotropium Inh (Spiriva Handihaler) 18 Mcg Cap 18 MCG INH DAILY for COPD, #30 CAP 0 Refills 1 capsule = 18 mcg Sherine Prince MD Jul 10, 2017 12:56
[2017-07-10] MEDS ORDERED: LISINOPRIL 5 MG TAB PO ONE (13:00)
[2017-07-10] MEDS ORDERED: LACTULOSE SYRUP 20 GM/30 ML CUP PO ONE (13:00)
[2017-07-10] MEDS ORDERED: INSULIN HUMAN REGULAR 1,000 UNITS/10 ML VIAL SQ SCH (17:00)
[2017-07-10] MEDS ORDERED: INSULIN DETEMIR 100 UNITS/ML VIAL SQ SCH (21:00)
[2017-07-11] MEDS ORDERED: LISINOPRIL 5 MG TAB PO SCH (09:00)
== END 2017-07-10 18:24 | DRG 683 ==
LOC: PHED 14:20 → PHEDA 16:53 → OBSVTOIN 19:04 → PH3B 20:01
PROVIDERS: ADMIT Hospitalist; ATTEND Hospitalist
DX: N17.9 Acute kidney failure, unspecified (principal); M62.82 Rhabdomyolysis; E11.65 Type 2 diabetes mellitus with hyperglycemia; E11.69 Type 2 diabetes mellitus with other specified complication; J44.9 Chronic obstructive pulmonary disease, unspecified; E66.9 Obesity, unspecified; I10 Essential (primary) hypertension; E78.5 Hyperlipidemia, unspecified; R09.02 Hypoxemia; S80.212A Abrasion, left knee, initial encounter; S80.211A Abrasion, right knee, initial encounter; E78.00 Pure hypercholesterolemia, unspecified; D72.829 Elevated white blood cell count, unspecified; E86.0 Dehydration; F17.200 Nicotine dependence, unspecified, uncomplicated; Y92.003 Bedroom of unspecified non-institutional (private) residence as the place of occurrence of the external cause; W06.XXXA Fall from bed, initial encounter; Z68.34 Body mass index [BMI] 34.0-34.9, adult; Z79.4 Long term (current) use of insulin
CPT/HCPCS: 71045; 80048; 81001; 82550; 82552; 82948; 83735; 84484; 85025; 93005; 96360; J1644; J1815; J7030